=== PATIENT | female | born 1960 | race Caucasian/White ===

== ENCOUNTER 2017-06-06 15:05 | Outpatient (CLI) | payer OTHER ==
--- NOTE | 2017-06-06 15:51 | RAD ---
RADIOGRAPH RIGHT THIRD DIGIT 3 VIEWS: Date: 06/06/17 HISTORY: 56-year-old female with right middle finger pain. No mention of trauma in the history. COMPARISON: None. FINDINGS: There are bandages obscuring soft tissue detail around the third distal phalanx and the distal two-th irds of the third middle phalanx. There are moderate degenerative changes at the third DIP joint. Mil d swan-neck configuration (slight hyperextension of the PIP, and slight flexion of the DIP). No fract ure lucency visualized. No dislocation. IMPRESSION: 1. 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 2. No fracture or bone destruction identified. POS: [facility]
== END 2017-06-06 15:06 | disposition home or self-care (01) ==
LOC: RAD-FRANK 15:05
PROVIDERS: ATTEND Physician Assistant
DX: S69.91XA Unspecified injury of right wrist, hand and finger(s), initial encounter (principal); M19.041 Primary osteoarthritis, right hand